=== PATIENT | female | born 1995 | race Two or more races ===

== ENCOUNTER 2020-06-07 12:56 | Emergency (ER) | payer BC ==
[~2020-06-07] VITALS: Ht 160 cm; Wt 90.0 kg
[2020-06-07] MEDS ORDERED: FAMOTIDINE 20 MG/2 ML VIAL IVP ONE (13:15)
[2020-06-07] MEDS ORDERED: IV NORMAL SALINE 1000ML BAG 1,000 ML IV ONE (13:15)
[2020-06-07] MEDS ORDERED: ONDANSETRON PF 4 MG/2 ML VIAL. IVP ONE (13:15)
[2020-06-07 13:25] LABS: BILIRUBIN,URINE LARGE (NEG); CLARITY,URINE CLOUDY; NITRITE,URINE NEGATIVE (NEG); PROTEIN,URINE 100 mg/dL (NEG-TRACE)
--- NOTE | 2020-06-07 13:25 | PHYS DOC ---
Past Medical History Past Medical History: No Pertinent History, Other Additional Past Medical Histor: "kidney problems" as a child Past Surgical History: No Surgical History Alcohol Use: None Drug Use: None General Adult EDM: Chief Complaint: NAUSEA/VOMITING/DIARRHA HPI: HPI: Patient is a 24 year old female with a history of gastric sleeve done on May 16 in [place] who presents today complaining of nausea vomiting that began 3 days ago. Patient states she has not had a bowel movement for 1-1/2 weeks. Denies any abdominal pain. Denies any fever. Denies any hematemesis or melena. She states she was seen at urgent care yesterday and received injection for nausea medicine Review of Systems: Review of Systems: Constitutional: Denies fever or chills. [] Eyes: Denies change in visual acuity. [] HENT: Denies nasal congestion or sore throat. [] Respiratory: Denies cough or shortness of breath. [] Cardiovascular: Denies chest pain or edema. [] GI: Reports nausea and vomiting, denies abdominal pain, bloody stools or diarrhea. [] : Denies dysuria. [] Musculoskeletal: Denies back pain or joint pain. [] Integument: Denies rash. [] Neurologic: Denies headache, focal weakness or sensory changes. [] Psychiatric: Denies depression or anxiety. [] Heart Score: Risk Factors: Risk Factors: DM, Current or recent (<one month) smoker, HTN, HLP, family history of CAD, obesity. Risk Scores: Score 0 - 3: 2.5% MACE over next 6 weeks - Discharge Home Score 4 - 6: 20.3% MACE over next 6 weeks - Admit for Clinical Observation Score 7 - 10: 72.7% MACE over next 6 weeks - Early Invasive Strategies Current Medications: Current Medications Medications (Trade) Dose Ordered Sig/Joel Start Time Stop Time Status Last Admin Dose Admin Famotidine (Pepcid Vial) 20 mg 1X ONCE 06/07/20 13:15 06/07/20 13:16 UNV Ondansetron HCl (Zofran) 4 mg 1X ONCE 06/07/20 13:15 06/07/20 13:16 UNV Sodium Chloride 1,000 ml @ 1,000 mls/hr 1X ONCE 06/07/20 13:15 06/07/20 14:14 UNV Allergies: Allergies: Allergies Coded Allergies Type Severity Reaction Last Updated Verified No Known Drug Allergies 09/12/13 No Physical Exam: PE: Constitutional: Well developed, well nourished, no acute distress, non-toxic appearance. [] HENT: Normocephalic, atraumatic, bilateral external ears normal, oropharynx moist, no oral exudates, nose normal. [] Eyes: PERRLA, EOMI, conjunctiva normal, no discharge. [] Neck: Normal range of motion, no tenderness, supple, no stridor. [] Cardiovascular:Heart rate regular rhythm, no murmur [] Lungs & Thorax: Bilateral breath sounds clear to auscultation [] Abdomen: Laparoscopic surgical incisions noted on the abdomen consistent with gastric sleeve, no signs of infection, bowel sounds normal, soft, no tenderness, no masses, no pulsatile masses. [] Skin: Warm, dry, no erythema, no rash. [] Back: No tenderness, no CVA tenderness. [] Extremities: No tenderness, no cyanosis, no clubbing, ROM intact, no edema. [] Neurologic: Alert and oriented X 3, normal motor function, normal sensory function, no focal deficits noted. [] Psychologic: Affect normal, judgement normal, mood normal. [] Current Patient Data: Labs: Laboratory Tests Test 06/07/20 13:08 POC Urine HCG, Qualitative Hcg negative (Negative) EKG: EKG: [] Radiology/Procedures: Radiology/Procedures: []PROCEDURE: ABDOMEN SUPINE & UPRIGHT Portable 2 view abdomen pelvis HISTORY: Nausea vomiting gastric sleeve Supine and upright AP view abdomen pelvis There is formed stool scattered the colon. There is air within a few loops of small bowel. There is no evidence of dilated bowel or free air. IMPRESSION: Mild constipation. Electronically signed by: Ramesh Castillo III, MD (06/07/2020 1:41 PM) [facility] DICTATED and SIGNED BY: RAMESH CASTILLO III, MD DATE: 06/07/20 [id number] 0 Course & Med Decision Making: Course & Med Decision Making Pertinent Labs and Imaging studies reviewed. (See chart for details) This is a 34-year-old female patient presenting to the ED today with nausea vomiting for 3 days. Patient had a gastric sleeve done on May 16, 2020 in [place], she reports no bowel movement for 1-1/2 weeks. CBC, CMP with no acute findings. Urine analysis negative for infection, noted f or dehydration. Patient was given a liter of fluid on Zofran in the ED as well as Pepcid with good relief. Abdominal x-ray interpreted by radiologist was noted for constipation. She was given mag citrate in the ED. She was encouraged to take mag citrate daily until she has a normal bowel movement but not exceed 3 days. We also talked about taking MiraLAX every day. Discussed other ways of managing constipation that are relevant for gastric sleeve. Discharged to home. Follow-up with her own doctor next week Jessi Disclaimer: Jessi Disclaimer: This electronic medical record was generated, in whole or in part, using a voice recognition dictation system. Departure Departure Impression: Primary Impression: Nausea & vomiting Qualified Codes: R11.2 - Nausea with vomiting, unspecified Additional Impression: Constipation Qualified Codes: K59.00 - Constipation, unspecified Disposition: 01 DC HOME SELF CARE/HOMELESS Condition: STABLE Referrals: NO PCP (PCP) followup with your doctor nex week JUSTIN GHOTRA MD follow up in one week Patient Instructions: Constipation, Adult, Nausea and Vomiting Additional Instructions: You were evaluated in the emergency room and noted to be constipated and dehydrated. You were given a liter of fluid in the emergency room. Please buy magnesium citrate and drink one bottle today. Take MiraLAX every day for constipation. Repeat mag citrate in the next 2 days. Increase your dietary water intake as well as fiber intake as well as surgery. Follow-up with your doctor in 1 week Scripts Promethazine Hcl (PROMETHAZINE HCL) 25 Mg Tablet 1 TAB PO PRN Q6HRS, #20 TAB Prov: JERRY [employer] 06/07/20 Magnesium Citrate (MAGNESIUM CITRATE) 296 Ml Solution 296 ML PO ONCE, #296 ML Prov: MUTUNGAJERRY [employer] 06/07/20 JERRY [employer] Jun 07, 2020 13:25
[2020-06-07 13:31] LABS: AMPHETAMINE/METHAMPHETAMINE NEG (NEG); BARBITURATES NEG (NEG); BENZODIAZEPINES NEG (NEG); CANNABINOIDS NEG (NEG); COCAINE NEG (NEG); METHADONE NEG (NEG); OPIATES NEG (NEG); PHENCYCLIDINE NEG (NEG)
[2020-06-07 13:36] LABS: BACTERIA,URINE 0 /HPF (0-FEW); COLOR,URINE YELLOW; RBC,URINE 0 /HPF (0-2); WBC,URINE OCC /HPF (0-4)
[2020-06-07 13:44] LABS: BASO % 1 % (0-3); EOS # 0.1 x10^3/uL (0.0-0.7); EOS % 2 % (0-3); HEMATOCRIT 38.3 % (36.0-47.0); HEMOGLOBIN 13.5 g/dL (12.0-15.5); LYMPH % 33 % (24-48); MEAN CORPUSCULAR HEMOGLOBIN 29 pg (25-35); MEAN CORPUSCULAR HGB CONC 35 g/dL (31-37); MEAN CORPUSCULAR VOLUME 82 fL (79-100); MONO # 0.5 x10^3/uL (0.0-1.1); MONO % 9 % (0-9); NEUT # 3.4 x10^3/uL (1.8-7.7); NEUT % 56 % (31-73); PLATELET COUNT 241 x10^3/uL (140-400); RED BLOOD COUNT 4.67 x10^6/uL (3.50-5.40); RED CELL DISTRIBUTION WIDTH 14.3 % (11.5-14.5); WHITE BLOOD COUNT 6.1 x10^3/uL (4.0-11.0)
--- NOTE | 2020-06-07 13:44 | RAD ---
Portable 2 view abdomen pelvis HISTORY: Nausea vomiting gastric sleeve Supine and upright AP view abdomen pelvis There is formed stool scattered the colon. There is air within a few loops of small bowel. There is no evidence of dilated bowel or free air. IMPRESSION: Mild constipation. Electronically signed by: Hudson Castillo III, MD (06/07/2020 1:41 PM) [facility]
[2020-06-07 13:59] LABS: CALCIUM 9.2 mg/dL (8.5-10.1); CREATININE 0.9 mg/dL (0.6-1.0); GFR 76.3; POTASSIUM 3.2 mmol/L (3.5-5.1)
[2020-06-07 14:04] LABS: ALBUMIN 4.2 g/dL (3.4-5.0); TOTAL BILIRUBIN 0.8 mg/dL (0.2-1.0); TOTAL PROTEIN 8.5 g/dL (6.4-8.2)
[2020-06-07 14:09] VITALS: BP 110/54
[2020-06-07] MEDS ORDERED: MAGNESIUM CITRATE 296 ML SOLUTION. PO ONE (14:30)
[2020-06-07] MEDS ORDERED: PROM25TA10 PO (14:32)
[2020-06-07] MEDS ORDERED: MAGN296S68 PO (14:32)
== END 2020-06-07 14:50 | disposition home or self-care (01) ==
LOC: ER 12:56
DX: R11.2 Nausea with vomiting, unspecified (principal); K59.00 Constipation, unspecified
CPT/HCPCS: 36415; 74021; 80053; 80307; 81001; 81025; 85025; 87086; 96361; 96374; 96375; 99284; G0480; J2405; J3490; J7030